=== PATIENT | female | born 1940 | race Caucasian/White ===

== ENCOUNTER → 2021-07-24 | Outpatient (CLI) | payer OTHER ==
--- NOTE | 2021-07-24 16:04 | RAD ---
EXAM: Thyroid sonogram. HISTORY: Thyrotoxicosis. TECHNIQUE: Sonographic imaging of the thyroid was performed. COMPARISON: None. FINDINGS: The right thyroid lobe measures 4.5 x 2.0 x 1.3 cm. The left thyroid lobe measures 5.3 x 2. 7 x 2.5 cm. The thyroid isthmus measures 6.3 mm. The thyroid parenchyma is diffusely heterogeneous an d contains multiple nodules. There is a dominant solid heterogeneous predominantly isoechoic nodule within the mid left thyroid lo be measuring 3.2 x 2.5 x 2.3 cm. This demonstrates internal blood flow, circumscribed margins and wid ally patent all morphology. The second largest nodule is seen along the left aspect of the thyroid isthmus measuring 1.1 x 0.9 x 0.8 cm. This is isoechoic with ill-defined margins and wider than tall morphology. The third largest nodule is seen within the superior left thyroid lobe measuring 1.1 x 0.9 x 0.8 cm. This is heterogeneous and hypoechoic with internal echogenic foci, ill-defined margins, internal bloo d flow and widened wider than tall morphology. The largest nodule on the right is solid and hypoechoic with ill-defined margins and water than tall morphology, measuring 1.0 x 0.6 x 0.4 cm. There are multiple additional subcentimeter thyroid nodules . IMPRESSION: 1. 3.2 cm dominant left thyroid nodule. TI-RADS Category 3. Sonographic guided fine-needle aspiration is typically recommended for category 3 nodules of this size. 2. 1.1 cm nodule within the left aspect of the thyroid isthmus there are also several nodules measuri ng up to 1.0 cm within the right thyroid lobe. TI-RADS Category 3. Sonographic follow-up is typically recommended for Category 3 nodules greater than 1.5 cm. 3. 1.1 cm nodule within the superior left thyroid lobe containing echogenic foci. TI-RADS Category 4. Sonographic follow-up is typically recommended for Category 4 nodules measuring 1.0 cm to 1.5 cm. Fi ne-needle aspiration is recommended for Category 4 nodules greater than 1.5 cm. 4. Mildly enlarged and diffusely heterogeneous thyroid. Electronically signed by: Shirlene Alan MD (07/24/2021 4:01 PM) [id number]
== END ==
LOC: US 14:38
PROVIDERS: ATTEND Nurse Practitioner Adult Health
DX: E04.2 Nontoxic multinodular goiter (principal); E05.90 Thyrotoxicosis, unspecified without thyrotoxic crisis or storm
CPT/HCPCS: 76536